=== PATIENT | female | born 2000 | race Caucasian/White ===

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

== ENCOUNTER 2022-09-07 10:26 | Emergency (ER) | payer MEDICAID ==
[~2022-09-07] VITALS: Ht 152.4 cm; Wt 49.4 kg
[~2022-09-07 10:26] MED LIST: MECL-103 PO
[2022-09-07 11:00] VITALS: BP_SYST 138
--- NOTE | 2022-09-07 11:28 | NUR ---
ER at bedside examining patient.
[2022-09-07] MEDS ORDERED: BUTA1CAP43 PO (11:32)
--- NOTE | 2022-09-07 11:41 | NUR ---
Patient given written and verbal discharge instructions and verbalizes understanding. ER MD discussed with patient the results and treatment provided. Patient in stable condition Rx of given. Patient educated on pain management and to follow up with PMD. Pain Scale []. Opportunity for questions provided and answered. Medication side effect fact sheet provided.
== END 2022-09-07 11:41 | disposition home or self-care (01) ==
LOC: SED 10:26
DX: G44.209 Tension-type headache, unspecified, not intractable (principal); H57.12 Ocular pain, left eye; Z79.899 Other long term (current) drug therapy
CPT/HCPCS: 99283